=== PATIENT | female | born 1945 | race Caucasian/White ===

== ENCOUNTER → 2019-10-04 | Outpatient (CLI) | payer MEDICARE ==
[~2019-10-04] MED LIST: IOPAMIDOL 370 MG/ML 200 ML INFUS..BTL INJ ONE; SODIUM CHLORIDE 0.9% 50ML 50 ML ONE
[2019-10-04 17:50] LABS: BLOOD UREA NITROGEN 34 mg/dL (7-26); BUN/CREATININE RATIO 48 (6-25); CREATININE, SERUM 0.71 mg/dL (0.57-1.11); EST GLOMERULAR FILTRATION RATE > 60 ML/MIN (60-)
--- NOTE | 2019-10-04 18:58 | Diagnostic Imaging Report ---
EXAM: CT Chest WITH contrast 10/04/2019 4:45 PM INDICATION: ^[id number] ^1800 ^BREAST MASS; HEMATOMA COMPARISON: None TECHNIQUE: Chest was scanned utilizing a multidetector helical scanner from the lung apex through the level of the adrenal glands without administration of IV contrast. Coronal and sagittal reformations were obtained. Routine protocol was performed. IV CONTRAST: 100 mL of Omnipaque 300 COMPLICATIONS: None RADIATION DOSE: Total DLP: 516.63 mGy*cm Estimated effective dose: (DLP x 0.014 x size factor) mSv CTDIvol has been reviewed. It is below the limits set by the Radiation Protocol Committee (RPC). FINDINGS: LINES/ TUBES: None. LUNGS AND AIRWAYS: There is bibasilar atelectasis. Airways are normal. PLEURA: The pleural spaces are clear. HEART AND MEDIASTINUM: The thyroid gland is normal. No mediastinal, hilar or axillary lymphadenopathy. The heart is normal in size.. There is no pericardial effusion. UPPER ABDOMEN: Bilateral renal cysts and indeterminate low-density lesions are seen. Splenule. . BONES: There are degenerative changes in the thoracic spine. SOFT TISSUES: Bilateral breast prosthesis. The left-sided prosthesis contains air-fluid level is suspicious for rupture. No definite sign of inflammation seen on CT. IMPRESSION: Bilateral breast prosthesis. The left-sided prosthesis contains air-fluid level is suspicious for rupture. No definite sign of inflammation seen on CT. Bilateral renal lesions are incompletely included and evaluated on this exam. This can be further evaluated with follow-up renal ultrasound. Signed by: Fernando Lopez MD on 10/04/2019 6:56 PM
== END ==
LOC: CT 16:05
PROVIDERS: ATTEND Surgery
DX: N64.59 Other signs and symptoms in breast (principal); N28.9 Disorder of kidney and ureter, unspecified
CPT/HCPCS: 36415; 71260; 82565; 84520; Q9967